=== PATIENT | female | born 1990 | race Two or more races ===

== ENCOUNTER 2024-09-26 10:57 | Emergency (ER) | payer OTHER ==
[~2024-09-26] VITALS: Ht 162.6 cm; Wt 68.0 kg
[2024-09-26] MEDS ORDERED: ZYRTEC10 M3 PO (11:44)
[2024-09-26] MEDS ORDERED: ORALONE5 GM TOP (11:44)
[2024-09-26 11:51] VITALS: BP 123/64; O2SAT 98
== END 2024-09-26 11:52 | disposition home or self-care (01) ==
LOC: ER 10:57
DX: L28.2 Other prurigo (principal); R21 Rash and other nonspecific skin eruption; E03.8 Other specified hypothyroidism